=== PATIENT | female | born 1985 | race Caucasian/White ===

== ENCOUNTER 2023-06-11 11:19 | Emergency (ER) | payer OTHER, SELFPAY ==
[2023-06-11 11:38] VITALS: BP 143/88
--- NOTE | 2023-06-11 13:30 | ED.GENMED ---
History of Present Illness
General
Chief Complaint: Back Pain
Time Seen by Provider: 06/11/23 12:29
Travel History
Have you had any contact with someone who has COVID-19?: No
Do you have any symptoms of coronavirus? Fever > 100 degrees, chills, cough, shortness of breath, sore throat, loss of taste or smell, muscle aches, or headache?: No
History of Present Illness
History of Present Illness:
37-year-old previously healthy female presents to the emergency department for evaluation of right-sided low back pain radiating down the right leg gradually worsening over the past 2 weeks. She was given a course of methylprednisolone which she
completed this morning without relief. Pain originates adjacent to the right buttock and radiates down the posterior right leg. Pain is currently rated 10 out of 10. Did not take any [id number] medications for the symptoms. Denies any loss
of bladder or bowel control. No fevers or chills. No history of IV drug use
She is scheduled for an MRI in 1 month through her pain management doctor
Past History
Past History
ED Past Medical History: None
ED Past Surgical History: None
Review of Systems
Review of Systems
Allergies reviewed?: Yes
All Other Systems: ROS reviewed and negative except as documented in HPI and ROS
Phy Exam
Physical Exam
Physical Exam:
GEN: Visibly uncomfortable, well-developed well-nourished
HEENT: Oral mucosa moist, no scleral icterus
Cardiac: Regular rate
Lung: No respiratory distress, no tachypnea
MSK: No gross deformity or injuries
Skin: Good color, no pallor or jaundice, no rashes
Neuro: AO x3, right leg displays diminished strength in all lynne, 4 out of 5 strength to flexion and extension at the hip and knee as well as with plantar and dorsiflexion. Patellar reflexes 2+ bilaterally
Psych: Calm, cooperative
Course
Orders/Labs/Results
Orders:
Orders
06/11/23 13:29
Acetaminophen [Tylenol] 1,000 mg PO NOW STA
Ketorolac [Toradol] 30 mg IM NOW STA
Lidocaine [Lidocaine 4% Patch] 1 patch TOPICAL NOW STA
Oxycodone [Roxicodone] 5 mg PO NOW STA
Vital Signs
Initial and Last Documented VS:
Initial Vital Signs
Temp Pulse Resp BP Pulse Ox
98.7 F 85 18 143/88 100
06/11/23 11:38 06/11/23 11:38 06/11/23 11:38 06/11/23 11:38 06/11/23 11:38
Last Documented Vital Signs
Temp Pulse Resp BP Pulse Ox
98.7 F 85 18 143/88 100
06/11/23 11:38 06/11/23 11:38 06/11/23 11:38 06/11/23 11:38 06/11/23 11:38
MDM/Problems Addressed
MDM/Problems Addressed:
Patient's pain improved moderately with treatment measures in the emergency department. She has signs and symptoms consistent with lumbar radiculopathy most likely due to acute disc herniation, she has no red flag symptoms warranting emergent MRI
such as urinary incontinence or saddle anesthesia. Will treat the patient with supportive medications, recommend outpatient Ortho/pain specialty follow-up
*Critical Care Note
Total Time (30-74mins, 75-104mins- exclusive of procedures): Not Applicable
ED Attending Note
-
Portions of this chart may have been created with voice recognition software.� Occasional wrong word or��sound alike� substitutions may have occurred due to the inherent limitations of voice recognition software.
Discharge Plan
Departure
Patient Disposition: Home (Routine Discharge)
Date of Disposition: 06/11/23
Time of Disposition: 14:25
Patient with high blood pressure during this ER visit?: No
Discharge Problem:
Acute right lumbar radiculopathy
Instructions: Radiculopathy (DC)
Prescriptions:
New
oxycodone 5 mg tablet
5 mg PO Q8H PRN (Reason: Pain) Qty: 10 0RF
diclofenac potassium 50 mg tablet
50 mg PO TID Qty: 30 0RF
methocarbamol 750 mg tablet
750 - 1,500 mg PO Q8H PRN (Reason: back pain) Qty: 20 0RF
Referrals:
Jaime Sesay DO [Non-Admitting Privileges] -
Palmer Wilhelm CRNP [Family Provider] -
Interventions
Interventions:
*Risk Screen - Suicide Last Done: 06/11/23 12:12
*General Assessment Last Done: 06/11/23 11:38
*Neglect/Abuse Screening Last Done: 06/11/23 12:09
*ED COVID-19 Vaccine History Last Done: 06/11/23 11:38
*Nursing Disposition Last Done: 06/11/23 14:52
ED-Musculoskeletal Assessment Last Done: 06/11/23 13:00
Discharge Date and Time
Discharge Date/Time: 06/11/23 14:52
[2023-06-11] MEDS: TYLENOL 1000 MG PO (13:34)
[2023-06-11] MEDS: TORADOL 30 MG IM (13:34)
[2023-06-11] MEDS: ROXICODONE 5 MG PO (13:35)
[2023-06-11] MEDS: LIDOCAINE 4% PATCH 1 PATCH TOPICAL (13:35)
== END 2023-06-11 14:52 | disposition home or self-care (01) ==
LOC: EMR 11:19
PROVIDERS: EMERGENCY PHYSICIAN Emergency Medicine; FAMILY PHYSICIAN Nurse Practitioner Gerontology
DX: M54.16 Radiculopathy, lumbar region (principal)
CPT/HCPCS: 99282; 96372